=== PATIENT | female | born 1990 | race Caucasian/White ===

== ENCOUNTER 2019-04-10 10:35 | Day surgery (SDC) | payer OTHER, SELFPAY ==
[2019-04-10] VITALS (8 sets, daily range): BP systolic 118–136; BP diastolic 54–87; PULSE 85–93; RESP 16–18; TEMP 36.7–37.2; O2SAT 90–100; BMI 48.0
[2019-04-10 11:12] LABS: Internal QC Validated? YES +Cl - CLEAR BKGD
[2019-04-10 11:13] LABS: Pregnancy, Urine Negative Negative
[2019-04-10] MEDS: Lactated Ringers 1,000 ML 100 ML IV (11:25)
[2019-04-10 11:35] LABS: International Normalized Ratio 1.1; Prothrombin Time (Protime)PT. 14.1 SECONDS (11.7-14.9)
[2019-04-10 11:37] LABS: Partial Thromboplast Time 29.5 Seconds (24.1-36.2)
[2019-04-10 11:38] LABS: Hemoglobin A1c 5.6 % (4.2-6.3)
--- NOTE | 2019-04-10 12:30 | BON_PTH ---
PATIENT: CHAVA AMADO LOC: [facility] U#:[id number] AGE/SX: 28/F ROOM: RE04/10/[address]: Dr. Nicola Amado DPM : 1990 BED: DIS: 04/10/2019 SPEC #: [id number] RECD: 04/10/19 16:42 STATUS: STAR CR #: [id number] BAILEY: 04/10/19 12:[address]: Nicola Amado DEPT: SURGICAL PATHOLOGY RECD BY: Pb Jones Tissues: Leg, NOS Procedures: Decalcification bone/plaque Surgery Specimen Level III HEADER OPERATION: ORIF lateral malleolus fracture with syndesmosis, ankle PRE-OP DIAGNOSIS: Displaced fracture of lateral malleolus of right fibula; sprain of ligament of right ankle TISSUE SUBMITTED: Osteochondral defect MICROSCOPIC DIAGNOSIS Osteochondral defect: A piece of hyaline cartilage with focal fibrinous exudation, clinically lateral malleolus fracture. SJ:savanna 04/16/19 MICROSCOPIC DESCRIPTION Slides are reviewed. GROSS DESCRIPTION Received in fixative is one container labeled with the patient's name and designated osteochondral defect. The specimen consists of a piece of ceja-white bone and cartilage measuring 1 x 0.6 x 0.1 cm. The specimen is bisected and submitted entirely in one cassette after decalcification. / FRANCESCA:savanna 04/11/19 TC:5 CPT: 96023, 78943
--- NOTE | 2019-04-10 12:55 | RAD_ITS ---
STUDY: X-RAY - RIGHT ANKLE REASON FOR EXAM: Female, 28 years old. Repair lateral malleolus with syndesmosis in OR TECHNIQUE: Multiple intraoperative view(s) of the ankle. COMPARISON: None. FINDINGS: Intraoperative images demonstrate ORIF of the distal fibula with syndesmosis. RAD/Ankle min 3 Views IMPRESSION: Status post ORIF of the fibula. Electronically Signed: Jna Dao DO at 23:24 EST Tel [phone], Service support ,
[2019-04-10] MEDS: Bupivacaine Mpf 0.5% 30 ML VIAL (15:04)
--- NOTE | 2019-04-10 15:24 | DCINST_ITS ---
Discharge Diet: No Restrictions Discharge Activity: May Not Drive, May Not Shower, Use Walker, Use Crutches - please perform sponge bath Weight Bearing Status: No weight bearing - to right leg Keep extremity elevated above heart level: Right Leg Additional Activity Instructions:: Keep dressing clean, dry, intact to the right leg. Do not get dressing wet. Sponge bath only to avoid getting dressing wet. If get dressing wet, call office immediately for dressing change. Do not remove dressing. Elevate right foot above level of heart as much as possible over next 7 days. Ice around right knee 20 minutes on, 20 minutes off, every hour while awake for the next 7 days. Medications: begin taking doxycycline (antibiotic) and aspirin tomorrow, 04/11/2019, as instructed. Begin taking the Percocet pain medication tonight, 04/10/2019. 3 hours after taking the Percocet, take 800 mg of ibuprofen. After taking the ibuprofen, wait 3 hours to taken of the Percocet. So you will be taking a pain medication every 3 hours, and will change in between the percocet and ibuprofen. There will be 6 hours in between taking the percocet and 6 hours in between taking the ibuprofen. Do not take more than 3200mg (16 of the small pills) in one 24 hour period. Call your doctor if your incision/area has: Sudden Increased Bleeding, Increased Pain/ Swelling Call your doctor if you observe: Fever of 101 or Higher, Coldness, Increased Pain, Shortness of breath, Dizziness, Chest pain, Increased palpitations (irregular heartbeat), Calf discomfort Cleanse incision/area with: Keep Dressing Clean & Dry Allergies/Adverse Reactions: Allergies No Known Allergies Allergy (Verified 04/10/19 11:04) Medications to take at Discharge Acetaminophen [Tylenol Extra Strength] 500 - 1,000 mg PO Q6H PRN PRN 04/06/19 Hydrocodone/Acetaminophen [Hydrocodon-Acetaminophen 5-325] 1 ea PO PRN PRN 04/06/19 Ibuprofen [Ibu] 600 mg PO PRN PRN 04/06/19 Primary Care Physician: CHARLOTTE CARRASCO [Other] Test Results: Test results from this visit will be discussed in further detail at your follow- up appointment, if applicable. Please Follow Up With: Nicola Amado DPM When: 1 week Proposed Discharge Date: 04/10/19
--- NOTE | 2019-04-10 15:30 | OP.PCM_ITS ---
Problem List (1) Ankle syndesmosis disruption Status: Acute Qualifiers: Encounter type: subsequent encounter (2) Fracture of lateral malleolus at syndesmosis Status: Acute (3) Dislocation of right ankle joint Status: Acute Qualifiers: Encounter type: subsequent encounter Qualified Code(s): S93.04XD - Dislocation of right ankle joint, subsequent encounter (4) Osteochondral defect of ankle Status: Acute Report of Operation Date of Procedure: 04/10/19 Pre-Operative Diagnosis: 1. Right ankle lateral malleolus fracture, displaced. #2 right ankle syndesmosis disruption. #3 right ankle joint dislocation Post-Operative Diagnosis: 1. Right ankle lateral malleolus fracture, displaced. #2 right ankle syndesmosis disruption. #3 right ankle joint dislocation 4.) right ankle osteochondral defect Surgery/Procedure Performed:: 1. Right ankle joint arthroscopy with repair of osteochondral defect. #2 right ankle lateral malleolus open reduction with internal fixation. #3 right ankle syndesmosis reduction and repair Description of Surgical Findings:: Consistent with diagnosis. Reduction of deformity achieved and held with internal fixation. Osteochondral defect was loose and unstable. This was removed and repaired. pet stylist: Shannan Gaspar Type of Anesthesia:: General/Regional - with a popliteal/saphenous block to the right lower extremity Anesthesiologist: Yuriy Osuna Special Medications: 3 grams of ancef given preoperatively Specimen's removed: osteochondral defect of right ankle Drains: None Estimated Blood Loss (mL): 50 Description of Procedure: Pathology: Osteochondral defect the right ankle Anesthesia: General with a popliteal/saphenous block to the right lower extremity Hemostasis: Pneumatic thigh tourniquet placed to level of the right thigh at 300 mmHg for 120 minutes Estimated blood loss: 50 mL Materials: 1.)Arthrex 5 hole right locking distal fibula plate. 2.)3.5 x 12 mm cortical screw x2 3.) 3.5 x 14 mm cortical screw 4.) 3.5 x 20 mm cortical lag screw 5.) 2.7 x 10 mm locking screw. 6.) 2.7 x 12 mm locking screw. 7.) 2.7 x 40 mm locking screw x2 8.) Size 0 Vicryl. 9.) size 2-0 Vicryl. 10.) size 3-0 Vicryl. 11.) size 3-0 nylon Injectables: 5 mL 0.5 the Marcaine plain Complications: None Condition: Stable Indications: Patient is a 28-year-old female with no significant past medical history who suffered a slip and fall on March 28, 2019. Patient presented to the emergency department at that time for further evaluation. Patient was told that she had an ankle fracture. Patient was then told to remain nonwe ightbearing in a posterior splint and was given crutches for ambulation. Patient saw me in the office on Saturday, March 30, 2019 for further care. At that time, new x-rays were taken and I discussed with the patient her findings. This included a fracture of the lateral malleolus along with the instability at the right ankle syndesmosis and widening. I discussed with the patient her goals of activity and her lifestyle. 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 I discussed conservative and surgical interventions with the patient, and the risks and benefits to both. Surgical intervention would include an open reduction with internal fixation of the fibula and repair of the syndesmosis. Furthermore, I would like to perform an ankle joint arthroscopy to evaluate the ankle joint itself. I recommended surgical intervention due to her lifestyle. Patient was agreeable to surgical intervention and this is what she wished as well. Due to the significant swelling that was present and the loss of skin lines noted, I discussed with the patient that we have to wait approximately 10 to 14 days before surgical intervention. I had the patient come back to my office on Saturday, April 06, 2019 for an edema check. It was noted that there was significant reduction in edema and skin lines were then present. It was then determined at that time that surgical intervention will be performed today, April 10, 2019. Patient and her agreed with the plan and were agreed to surgical intervention. Operative Report: Before the patient was brought to the operating room, the risks, benefits, possible outcomes, possible complications of the procedure discussed with the patient. The risks include but are not limited to delayed or nonhealing wounds, delayed and nonhealing bone, infection, DVT, loss of limb, loss of life. All the patient's questions were answered to her satisfaction and all of her concerns were addressed. No guarantees were made as to the outcome of the procedure. Patient understood all aspects of the procedure, and consent was then signed by the patient. Before the patient was brought to the operating ro om, the anesthesiologist administered a popliteal/saphenous block to the right lower extremity. The patient was then brought to the operating room and placed on the operating table in supine position. After timeout, under general anesthesia, well-padded pneumatic thigh tourniquet was placed to level of the right thigh. Next, the right leg was then placed in the leg and thigh neal for the ankle joint arthroscopy. The right foot, ankle, leg were then scrubbed, prepped, draped in the usual sterile manner. Elevation of the right lower extremity was followed by exsanguination via Esmarch and inflation of the pneumatic thigh tourniquet to 300 mmHg. Attention was then directed to the anterior aspect of the right ankle joint. At this time, the ankle joint line was palpated and marked on the patient. Furthermore, the tibialis anterior tendon was palpated and marked. Next, 60 mL of normal sterile saline was then injected to the ankle joint just medial to the tibialis anterior tendon. Immediate dorsiflexion and eversion was noted of the foot at the level of the ankle. At this time, #15 blade was used to perform a stab incision just medial to the tibialis anterior tendon at the level of the ankle joint. Blunt dissection was continued down deep to the level of the ankle joint capsule. At this time, the trocar inserted into the cannula was placed into the surgical site and used to penetrate the ankle joint capsule. An immediate backflow out of the ankle joint was noted. The trocar was then removed, and the camera was inserted into the cannula. Visual inspection of the ankle joint was performed. Synovitic tissue was noted throughout the ankle joint. Furthermore, an osteochondral defect was identified on the dorsal medial aspect of the talus in the area of the talar shoulder. Next, transillumination was performed to determine the level of the anterior lateral portal. A #15 blade was used to perform a stab incision at the level of the ankle joint in an area void of neurovascular structures. Blunt dissection was continued down deep through this anterior lateral incision at the level of the ankle joint. Once the ankle joint capsule was found, this was then penetrated. The hemostat was then removed. At this time, the micro-pick was placed into the anterior lateral portal. Triangulation was then performed and the osteochondral defect was inspected. This was noted to be unstable in nature. The micro-pick and camera were then removed in their entirety. The trocar inserted into the cannula was placed into the anterior lateral surgical site. The trocar was then removed and the camera was then placed. Hemostat was then placed in the anterior medial surgical site. At this time triangulation was performed to the level of the osteochondral defect. Once identified, the osteochondral defect was then removed in entirety. This was then passed from the operative site to be sent for pathology. Next, the micro-pick was placed in the anterior medial portal and the talus was then picked to tuber machine operator helper in the growth of the fibrocartilage. The pick was then removed and the rotary bur was placed into the anterior medial surgical site. The edges of the cartilage surrounding the defect were then burred. The bur was then removed and the arthroscopic shaver was then placed into the anterior medial surgical site. The synovitic tissue that was present in the ankle joint was then removed via the arthroscopic shaver. Visual inspection was then performed of the ankle joint. A significant decrease in synovitic tissue was noted. Furthermore, the osteochondral defect was adequately picked and burred. The equipment was then removed and the anterior medial and anterior lateral surgical portals. Attention was then directed to the lateral aspect of the right ankle. At this time, radiographic evaluation was performed to determine the distal tip of the lateral malleolus, level of ankle fracture, and distal one third of the fibular shaft. These were then marked on the skin of the patient. Next, #15 blade was used to perform a linear longitudinal incision starting on the lateral aspect of the distal one third of the fibular shaft extending distally to the distal tip of the lateral malleolus. This incision was deepened utilizing sharp and blunt dissection. Care was taken to retract all vital neural and vascular structures. All bleeders were cauterized and ligated as necessary. At this time, a linear periosteal and capsular incision was made in line with the original skin incision. The periosteal and capsular structures then re flected anteriorly and posteriorly, thus exposing the fibula fracture at the operative site. At this time, a curette was used to remove any fibrous tissue contained within the fracture site. Surgical site was irrigated copious amounts normal sterile saline. At this time, the fracture was then reduced via temporary fixation. Radiographic evaluation was then performed. The fracture was noted to be reduced at this time back in anatomical position. The fibula was noted to be out to length and no rotation was noted. Next, the Arthrex 3.5 cortical lag screw was inserted in standard AO fixation as perpendicular to the fracture site as possible. Of note during insertion of the screw was adequate compression of the fracture fragments. Furthermore, no shifting any of the fragments occurred during insertion of the screw. Once the screw was fully inserted, all temporary fixation was then removed. Radiographic evaluation was then performed. The interfragmentary screw was noted to hold the fracture in the corrected reduced position. This time, the Arthrex 5 hole distal fibula plate was placed over the lateral aspect of the fibula. Radiograph evaluation was then performed to determine the exact position that it should be placed. Once determined, this was held via temporary fixation. Next this was held down to the lateral aspect of the fibula with a mixture of nonlocking and locking screws. Of note during insertion of the screws was adequate compression of the plate to the fibula. Furthermore, no shifting of the plate or any of the fragments occurred during insertion of the screws. The temporary fixation was then removed. Care was taken to make sure to leave the 2 screws around the syndesmosis open to place the Arthrex tight rope. Once the other screws were fully inserted, radiograph evaluation was then performed. The fibula was noted to be out to length and held in the corrected reduced position. Furthermore, all screws noted to not to be too long or too short. At this time, the foot was held in a dorsiflexed position. With this foot held, a bone reduction clamp was used to reduce the syndesmosis back into anatomical position. Radiograph evaluation was then performed. The syndesmosis noted to be back in anatomical reduction. Furthermore, a normal tibiofibular overlap was noted. This was held via this bone clamp. Next, 2 of the Arthrex tight ropes were placed from lateral to medial through the 2 open holes of the fibular plate. Of note during insertion of the tight ropes and tightening of the tight ropes was the adequate compression at the level of the syndesmosis. Once both tight ropes were fully inserted, temporary fixation and temporary bone clamp were removed. Radiograph evaluation was then performed. The arthrex tightrope was noted to hold the tibia and the fibula in the corrected reduced position and the syndesmosis was noted to be back in anatomic position. Final radiographs were then performed. The fibula was noted to be out to length and back in anatomical position. The hardware was noted to hold the fibula in the correct position. The fracture was noted to be reduced from preoperative assessment. Furthermore, reduction of the tibiofibular overlap was noted and the syndesmosis was noted to be reduced from preoperative assessment. Each surgical site was then irrigated with copious muscle normal sterile saline. The periosteal capsular structures of lateral surgical site were reapproximated coapted utilizing size 0 and 2-0 Vicryl. The subcutaneous tissue was reapproximated coapted utilizing 2-0 and 3-0 Vicryl. At this time, the pneumatic thigh tourniquet was then released and a prompt hyperemic response noted to the entirety of the right lower extremity. The skin of the lateral surgical site was reapproximated coapted utilizing 3-0 nylon in a simple interrupted and horizontal mattress fashion. Subcutaneous tissue of the arthroscopic portal sites were reapproximated coapted utilizing 3-0 Vicryl. The skin was reapproximated coapted using 3-0 nylon in a simple interrupted horizontal mattress fashion. Each surgical site was then dressed with Betadine soaked gauze, and a dry sterile dressing consisting of of 4 x 4 gauze wrapped with Kerlix. Care was taken to make sure that adequate padding was placed on the heel and around the ankle. The right foot and ankle were then wrapped with an Fabian bandage. At this time, a stockinette was placed over the right lower extremity. Next, cast padding was wrapped in the metatarsal heads extending proximally to the level just distal to the tibial tuberosity. A posterior splint was fashioned to the right lower extremity and was adhered to the right lower extremity utilizing Fabian bandages. Care was taken make sure the foot and ankle held in neutral position as the posterior splint dried. Neurovascular status was assessed at the end of the application and deemed intact to the right lower extremity. The patient tolerated the anesthesia and the procedure well and was transferred to the PACU with vital signs stable neurovascular status intact the right lower extremity. After a period of postoperative monitoring, patient will be discharged home with written and oral instructions for wound care and follow-up. The certified ophthalmic surgical assistant, the nurse practitioner, was utilized throughout the entire procedure. She helped with patient positioning, holding of limb, holding of retractors. She helped with exposure throughout. She helped with bandage application and cast application. Without the certified ophthalmic surgical assistant, surgical time would have been increased. Surgical outcome could have been less optimal. - Complications None - Admit VTE Documentation VTE Present on Admission: No VTE Pharm Prophylaxis ordered?: Yes
--- NOTE | 2019-04-10 16:35 | RAD_ITS ---
STUDY: X-RAY - RIGHT ANKLE REASON FOR EXAM: Female, 28 years old. Post op ORIF right ankle TECHNIQUE: 3 view(s) of the ankle. COMPARISON: None. FINDINGS: Status post ORIF of the fibula with syndesmosis. Soft tissue swelling with postsurgical changes. A splint has been placed. RAD/Ankle min 3 Views IMPRESSION: Status post ORIF of the fibula. Electronically Signed: Jan Dao DO at 23:28 EST Tel [phone], Service support ,
[2019-04-10] MEDS: HYDROcodone Bitartrate/Apap 5/325 Tablet PO (17:55)
== END 2019-04-10 18:34 | disposition home or self-care (01) ==
LOC: SDC 10:39 → AC 10:40
PROVIDERS: Anesthesiology; Referring Provider Podiatrist Foot & Ankle Surgery; Visit Provider Podiatrist Foot & Ankle Surgery
PROC: (CPT 27792; principal; 2019-04-10 12:10)
DX: S82.61XA Displaced fracture of lateral malleolus of right fibula, initial encounter for closed fracture (principal); S93.431A Sprain of tibiofibular ligament of right ankle, initial encounter; M21.6X1 Other acquired deformities of right foot; W01.0XXA Fall on same level from slipping, tripping and stumbling without subsequent striking against object, initial encounter; Y93.01 Activity, walking, marching and hiking; Y92.219 Unspecified school as the place of occurrence of the external cause
CPT/HCPCS: 01480; 27792; 27829; 29891; 64450; 73610; 76000; 81025; 83036; 85610; 85730; 88304; 88305; 88311; C1713; J7120; J2405